=== PATIENT | female | born 1940 | race Two or more races ===

== ENCOUNTER 2016-04-09 09:24 | Day surgery (SDC) | payer OTHER, MEDICAID ==
[~2016-04-09] VITALS: Ht 152.4 cm; Wt 57.8 kg
[2016-04-09] VITALS (11 sets, daily range): BP systolic 112–146; BP diastolic 53–75; PULSE 62–90; RESP 11–19; Ht 152.4 cm; Wt 57.8 kg
[~2016-04-09 09:24] MED LIST: IBUP-725
[2016-04-09] MEDS ORDERED: CEFAZOLIN 2 GM/50 ML (PMX) 50 ML IVPB ONE (10:00)
[2016-04-09] MEDS ORDERED: SOD CHLORIDE 0.9% 1,000 ML IV SCH (10:00)
[2016-04-09] MEDS ORDERED: BUPIVACAINE 0.25% (MPF) 30 ML INJ ONE (11:13)
[2016-04-09] MEDS ORDERED: PROPOFOL 20 ML ONE (11:21)
[2016-04-09] MEDS ORDERED: ROCURONIUM 50 MG INJ ONE (11:21)
[2016-04-09] MEDS ORDERED: GLYCOPYRROLATE 0.4 MG INJ ONE (11:21)
[2016-04-09] MEDS ORDERED: NEOSTIGMINE 3 MG/3 ML SYRINGE ONE (11:21)
[2016-04-09] MEDS ORDERED: MIDAZOLAM 1 MG/ML 2 ML INJ ONE (11:22)
[2016-04-09] MEDS ORDERED: ONDANSETRON 4 MG INJ ONE (11:22)
[2016-04-09] MEDS ORDERED: CEFAZOLIN 1 GM INJ ONE (11:36)
[2016-04-09] MEDS ORDERED: HYDROmorphONE 2 MG/ML SYG ONE (11:43)
[2016-04-09] MEDS ORDERED: ROPIVACAINE 0.5 % 30 ML VIAL ONE (11:46)
[2016-04-09] MEDS ORDERED: PHENYLephrine (100 MCG/ML) 5ML SYG ONE (11:56)
[2016-04-09] MEDS ORDERED: MEPERIDINE 25 MG INJ IV PRN (12:00)
[2016-04-09] MEDS ORDERED: METOCLOPRAMIDE 10 MG INJ IV PRN (12:00)
[2016-04-09] MEDS ORDERED: DIPHENHYDRAMINE 50 MG INJ IV PRN (12:00)
[2016-04-09] MEDS ORDERED: OXYCODONE/ACETAMINOPHEN (5/325) TAB PO PRN ×2 (12:00)
[2016-04-09] MEDS ORDERED: HYDROmorphONE (0.2 MG/ML) 10ML SYG IV PRN ×3 (12:00)
[2016-04-09] MEDS ORDERED: ONDANSETRON 4 MG INJ IV PRN (12:00)
[2016-04-09] MEDS ORDERED: BUPIVACAINE 0.25% (MPF) 30 ML INJ INJ ONE (12:03)
[2016-04-09] MEDS ORDERED: EPHEDrine SULFATE 50 MG/5 ML SYG ONE (12:06)
[2016-04-09] MEDS ORDERED: HYDROCODONE/APAP (5/325) TAB PO ONE (12:30)
--- NOTE | 2016-04-09 13:32 | OPR ---
DATE OF OPERATION: 04/09/2016 INDICATION: This is a 75-year-old female with symptomatic gallstones. She requests surgical excisi on of her gallbladder. The risks, alternatives, benefits, and personnel were discussed with the pat ient. The patient expressed understanding and consented to the operation. PREOPERATIVE DIAGNOSIS: Symptomatic gallstones. POSTOPERATIVE DIAGNOSIS: Symptomatic gallstones. OPERATION: Laparoscopic cholecystectomy. SURGEON: Lynda Gamble MD SPECIMEN: Gallbladder. COMPLICATIONS: None. ANESTHESIA: General. PROCEDURE: The patient was taken to the OR and prepped and draped in the usual sterile fashion. A surgical timeout was performed. IV antibiotics were given. An infraumbilical transverse incision w as made with a 15 blade. Dissection cautery was carried down to the fascia was divided with curved Harvey scissors. An 0 Vicryl U-stitch was placed into the fascia. The balloon Tracy trocar was intr oduced. Pneumoperitoneum was established. A midepigastric 12-mm optical trocar, right upper quadra nt, right upper flank 5-mm optical trocars were placed under direct visualization. Upon initial ins pection there were some adhesions to the gallbladder which were taken down bluntly. The cystic duct was identified. The critical view was established. The cystic duct and cystic artery were divided using a 35-mm Vazquez vascular load stapler. The gallbladder was taken off the gallbladder bed. T here was good hemostasis. The gallbladder was retrieved using an EndoCatch bag. The ports were rem adal under direct visualization. An 0 Vicryl U-stitch was tied down. The skin was closed using skin randy. Local anesthesia was injected. Dry dressings were applied. Dictated By: LYNDA CARDONA/ENOCH Conf#: [id number] DID#: [id number]
== END 2016-04-09 14:30 | disposition home or self-care (01) ==
LOC: SDS 09:24
PROVIDERS: ATTEND Surgery
DX: K80.20 Calculus of gallbladder without cholecystitis without obstruction (principal)
CPT/HCPCS: 47562; 88304; J0690; J1170; J2250; J2370; J2405; J2710; J2795